=== PATIENT | female | born 1980 | race Caucasian/White ===

== ENCOUNTER 2017-10-08 12:27 | Emergency (ER) | payer OTHER ==
[~2017-10-08] VITALS: Ht 160 cm; Wt 63.8 kg
[2017-10-08 12:39] VITALS: BP 144/93; PULSE 87; RESP 16; TEMP 99.3; O2SAT 99
[2017-10-08] MEDS ORDERED: PRED50 PO (12:50)
[2017-10-08] MEDS ORDERED: RANI150T PO (12:50)
[2017-10-08] MEDS ORDERED: HYDR-3133 PO (12:50)
[2017-10-08] MEDS ORDERED: DEXAMETHASONE SOD PHOS 4 MG/ML VIAL IM ONE (13:30)
[2017-10-08] MEDS ORDERED: diphenhydrAMINE HCL 50 MG/ML VIAL IM ONE (13:30)
--- NOTE | 2017-10-08 13:30 | PD ---
HPI Chief Complaint: Skin Problem Time Seen by Provider: 13:09 Travel History International Travel<30 days: No Contact w/Intl Traveler<30days: No Traveled to known affect area: No History of Present Illness HPI 36-year-old female here with rash to her trunk, upper extremities, face 3 days. She reports the same rash was present several weeks ago and spontaneously resolved. No fever chills. She describes the rash is pruritic. No recent illness or sore throat. She was seen in a local urgent care clinic and given a shot of Decadron which she reports resolve the rash. Symptom severity is moderate. Denies any new medications PFSH Past Medical History Medical History: Denies Significant Hx Diminished Hearing: No Tetanus Vaccination: > 5 Years Influenza Vaccination: No ?: Not LMP: has a IUD no menses Past Surgical History Surgical History: No Previous Surgery Social History Alcohol Use: Yes (occassionally ) Tobacco Use: No Substance Use: No Allergies-Medications (Allergen,Severity, Reaction): Coded Allergies: amoxicillin (Verified Allergy, Intermediate, skin rash, 10/08/17) Reported Meds & Prescriptions Reported Meds & Active Scripts Active Medrol Dosepak (Methylprednisolone) 4 Mg Dspk 4 Mg PO DIRECTED Per Pharmacist direction Diphenhydramine (Diphenhydramine HCl) 25 Mg Tab 25 Mg PO Q6H PRN 5 Days Pepcid (Famotidine) 40 Mg Tab 40 Mg PO BID Reported Ranitidine (Ranitidine HCl) 150 Mg Tab 150 Mg PO BID Prednisone 50 Mg Tab 50 Mg PO DAILY Hydroxyzine HCl 25 Mg Tab 25 Mg PO Q6HR Review of Systems Except as stated in HPI: all other systems reviewed are Neg General / Constitutional: No: Fever Eyes: No: Visual changes HENT: No: Headaches Cardiovascular: No: Chest Pain or Discomfort Respiratory: No: Shortness of Breath Gastrointestinal: No: Abdominal Pain Genitourinary: No: Dysuria Musculoskeletal: No: Pain Skin: Positive Rash Neurologic: No: Weakness Physical Exam Narrative GENERAL: Alert and well-appearing 36-year-old female SKIN: Warm and dry. Diffuse erythematous rash to patient's trunk and upper extremities. HEAD: Normocephalic. EYES: No injection or drainage. MOUTH: No oral airway swelling. Uvula is midline. NECK: Supple, trachea midline. No lymphadenopathy. No meningismus CARDIOVASCULAR: Regular rate and rhythm without murmurs, gallops, or rubs. RESPIRATORY: Breath sounds equal bilaterally. No accessory muscle use. No wheezing rales or rhonchi. GASTROINTESTINAL: Abdomen soft, non-tender, nondistended. MUSCULOSKELETAL: No cyanosis, or edema. BACK: Nontender without obvious deformity. No CVA tenderness. Data Data Last Documented VS Vital Signs Date Time Temp Pulse Resp B/P (MAP) Pulse Ox O2 Delivery O2 Flow Rate FiO2 10/08/17 12:39 99.3 87 16 144/93 (110) 99 Orders Orders Dexamethasone Inj (Decadron Inj) (10/08/17 13:30) Diphenhydramine Inj (Benadryl Inj) (10/08/17 13:30) [facility] Medical Decision Making Medical Screen Exam Complete: Yes Emergency Medical Condition: Yes Differential Diagnosis Allergic reaction, erythema multiforme, other Narrative Course 36-year-old female here with a rash to her trunk and upper extremities. This does not appear infectious. She is well appearing. Vital signs are stable. She was given a shot of Decadron and Benadryl and reports symptom improvement. He will be discharged home with steroids, Benadryl, Pepcid. Diagnosis Primary Impression: Rash and nonspecific skin eruption Referrals: Primary Care Physician Additional Instructions: Medication as directed. Return to the emergency department if you develop new or worsening symptoms. Scripts Methylprednisolone Dosepak (Medrol Dosepak) 4 Mg Dspk 4 MG PO DIRECTED, #1 DSPK 0 Refills Per Pharmacist direction Prov: Shireen Causey 10/08/17 Diphenhydramine (Diphenhydramine) 25 Mg Tab 25 MG PO Q6H Y for ALLERGIES for 5 Days, #20 TAB 0 Refills Prov: Shireen Causey 10/08/17 Famotidine (Pepcid) 40 Mg Tab 40 MG PO BID, #10 TAB 0 Refills Prov: Shireen Causey 10/08/17 Disposition: 01 DISCHARGE HOME Condition: Stable Shireen Causey Oct 08, 2017 13:30
[2017-10-08] MEDS ORDERED: FAMO1TAB73 PO (13:33)
[2017-10-08] MEDS ORDERED: MEDR4PAK PO (13:33)
[2017-10-08] MEDS ORDERED: DIPH25TA2 PO (13:33)
== END 2017-10-08 14:13 | disposition home or self-care (01) ==
LOC: PHEFT 12:27
DX: R21 Rash and other nonspecific skin eruption (principal); Z79.899 Other long term (current) drug therapy; Z88.0 Allergy status to penicillin
CPT/HCPCS: 96372; 99283; J1100; J1200